=== PATIENT | female | born 1990 | race Two or more races ===

== ENCOUNTER 2018-08-22 05:51 | Inpatient (IN) | payer OTHER ==
[~2018-08-22] VITALS: Ht 162.6 cm; Wt 89.8 kg
[2018-08-22] VITALS (15 sets, daily range): BP systolic 103–137; BP diastolic 56–78
[2018-08-22] MEDS ORDERED: Propofol 1,000mg/ 100ml btl IV ONE (06:00)
[2018-08-22] MEDS ORDERED: Sodium Chloride 10ml vial INJ ONE (06:23)
[2018-08-22] MEDS ORDERED: Dexamethasone 4mg/ml vial ONE (06:23)
[2018-08-22] MEDS ORDERED: fentaNYL 100 mcg/2 mL IV ONE ×2 (06:23→09:24)
[2018-08-22] MEDS ORDERED: Lidocaine 1% MPF 10mg/ml 5ml ONE (06:23)
[2018-08-22] MEDS ORDERED: Rocuronium Bromide 50mg/5ml Inj IV ONE (06:27)
[2018-08-22] MEDS ORDERED: LR 1000ml 1,000 ML IVLG SCH (06:42)
[2018-08-22] MEDS ORDERED: oxyCODONE HCL/Acetaminophen 5/325mg ORAL PRN (06:45)
[2018-08-22] MEDS ORDERED: Atropine Sulfate 0.4mg/ml inj IVP PRN (06:45)
[2018-08-22] MEDS ORDERED: HYDROcodone/Acetamin 5/325 tab ORAL PRN (06:45)
[2018-08-22] MEDS ORDERED: Labetalol 5mg/ml 20ml vial IV PRN (06:45)
[2018-08-22] MEDS ORDERED: Hydromorphone 0.5mg/0.5ml inj IVP PRN (06:45)
[2018-08-22] MEDS ORDERED: fentaNYL 100 mcg/2 mL IV PRN (06:45)
[2018-08-22] MEDS ORDERED: Ketorolac 30mg Inj IV PRN ×2 (06:45)
[2018-08-22] MEDS ORDERED: Acetaminophen (Non formulary) 100 ML IV ONE (06:45)
[2018-08-22] MEDS ORDERED: LORazepam Inj 2mg/ml 1ml IV PRN (06:45)
[2018-08-22] MEDS ORDERED: HYDROcodone/Acetamin 7.5/325 tab ORAL PRN ×3 (06:45→09:45)
[2018-08-22] MEDS ORDERED: DiphenhydrAMINE 50mg/ml Inj IVP PRN ×2 (06:45→09:45)
[2018-08-22] MEDS ORDERED: Midazolam 2mg/2ml Inj IVP PRN (06:45)
[2018-08-22] MEDS ORDERED: Meperidine 50mg/ml Inj(FOR RIGORS ONLY) IVP PRN (06:45)
[2018-08-22] MEDS ORDERED: Metoclopramide 10mg/2ml Inj IVP PRN (06:45)
[2018-08-22] MEDS ORDERED: Gelfoam Size TOPIC ONE (06:49)
[2018-08-22] MEDS ORDERED: Thrombin 5000 units TOPIC ONE (06:49)
[2018-08-22] MEDS ORDERED: Bacitracin 50000 Units Vial ONE (06:49)
[2018-08-22] MEDS ORDERED: Bupivacaine w/Epi 0.5% 30ml Vial INJ ONE (06:49)
[2018-08-22] MEDS ORDERED: Ropivacaine 5mg/ml Vial 30ml INJ ONE (06:49)
--- NOTE | 2018-08-22 06:50 | Anethesia Preoperative Eval ---
Anesthesia Pre-op PMH/ROS General Date of Evaluation: August 22, 2018 Time of Evaluation: 07:11 Anesthesiologist: Jonny ASA Score: ASA 2 Mallampati Score Class I : Soft palate, uvula, fauces, pillars visible Class II: Soft palate, uvula, fauces visible Class III: Soft palate, base of uvula visible Class IV: Only hard plate visible Mallampati Classification: Class I Surgeon: Macarena Diagnosis: Back Pain Surgical Procedure: Anterior , Decompression and StabilizationL4-5, L5-S1 Anesthesia History: none Family History: no anesthesia problems Allergies: Coded Allergies: No Known Allergies (Unverified , 08/22/18) Medications: see eMAR Patient NPO?: Yes NPO Date: August 21, 2018 NPO Time: 2329 Past Medical History Other: obesity - BMI 35 Anesthesia Pre-op Phys. Exam Physician Exam Last Vital Signs Date Time Temp Pulse Resp B/P (MAP) Pulse Ox O2 Delivery O2 Flow Rate FiO2 08/22/18 06:41 98.5 79 18 137/76 (96) 97 Constitutional: NAD Neurologic: CN 2-12 intact Cardiovascular: RRR Respiratory: CTA Gastrointestinal: S/NT/ND Airway Exam Mallampati Score: Class I MO: full ROM: full Teeth: intact Anesthesia Pre-op A/P Labs Urine Test Test 08/22/18 06:00 Urine HCG, Qualitative Negative (NEGATIVE) Risk Assessment & Plan Assessment: ASA 2 Plan: GA, SED, GlideScope Go Status Change Before Surgery: No Pre-Antibiotics Dru Grams Ancef IV Given Within 1 Hr of Incision: Yes Time Given: 07:36 Jack Fuller MD August 22, 2018 06:50
[2018-08-22] MEDS ORDERED: NKM (06:51)
[2018-08-22] MEDS ORDERED: LR 1000ml ONE (07:00)
[2018-08-22] MEDS ORDERED: NS Irrig 1000ml ONE (07:00)
[2018-08-22] MEDS ORDERED: Sterile Water Irrig 1000ml IRRIG ONE (07:00)
[2018-08-22] MEDS ORDERED: Lidocaine 1% Plain 30 ml INJ ONE (07:02)
[2018-08-22] MEDS ORDERED: Heparin 5000 units/ml inj ONE (07:04)
--- NOTE | 2018-08-22 07:09 | Pre-Procedure Note/Attestation ---
Pre-Procedure Note/Attestation Complete Prior to Procedure Planned Procedure: not applicable Procedure Narrative: Instability with disc herniation L4-5 and L5/S1 Plan to do Anterior Lumbar Decompression and fixation at L4-5 and L5/S1 Indications for Procedure Pre-Operative Diagnosis: Instability with disc herniation L4-5 and L5/S1 Attestation I attest that I discussed the nature of the procedure; its benefits; risks and complications; and alternatives (and the risks and benefits of such alternatives ), prior to the procedure, with the patient (or the patient's legal mortician supplies sales representative). I attest that, if there was a reasonable possibility of needing a blood transfusion, the patient (or the patient's legal mortician supplies sales representative) was given the [place] Department [employer] Services standardized written summary, pursuant to the [place] Blood Safety Act ([place] Health and Safety Code # 1645, as amended). I attest that I re-evaluated the patient just prior to the surgery and that there has been no change in the patient's H&P, except as documented below: Daniel Martins August 22, 2018 07:09
[2018-08-22] MEDS ORDERED: Glycopyrrolate 0.2mg/ml 1ml Vial ONE ×3 (08:08→09:42)
[2018-08-22] MEDS ORDERED: Neostigmine 1mg/ml 10ml Inj ONE (09:16)
--- NOTE | 2018-08-22 09:34 | Operative Note - PDOC ---
Operative Note Operative Note Date of Operation/Procedure: August 22, 2018 Chief Complaint: Low Back Pain Pre-op Diagnosis: Instability with disc herniation L4-5 and L5/S1 Procedure: L4-5 and L5/S1 Anterior Decompression and fixation. Post-op Diagnosis: same as pre-op Operative Findings: consistent w/pre-op dx studies Surgeon: Macarena Filling Layer Up: MELISA Martins Additional Surgeons: Niño - Vascular Approach Anesthesia: general Specimen: yes Complications: none Condition: stable Estimated Blood Loss: minimal Drains: none Implant(s) used?: Yes - Volodymyr InFix devices and Volodymyr DBM Daniel Martins August 22, 2018 09:34
[2018-08-22] MEDS ORDERED: HYDROmorphone 1mg/ml Carpuject SUBQ PRN (09:45)
[2018-08-22] MEDS ORDERED: Acetaminophen 650 MG SUPP RECTAL PRN (09:45)
[2018-08-22] MEDS ORDERED: Naloxone 0.4mg/ml Inj IVP PRN ×2 (09:45)
[2018-08-22] MEDS ORDERED: LORazepam 1mg tab ORAL PRN (09:45)
[2018-08-22] MEDS ORDERED: PCA Education Pamphlet MISC ONE (10:00)
[2018-08-22] MEDS ORDERED: Rate Change PCA 1 Each MISC PRN (10:00)
--- NOTE | 2018-08-22 10:01 | Immediate Post-Op Evaluation ---
Immediate Post-Op Evalulation Immediate Post-Op Evalulation Procedure: Anterior , Decompression and StabilizationL4-5, L5-S1 Date of Evaluation: August 22, 2018 Time of Evaluation: 10:13 IV Fluids: 1000 LR Blood Products: 0 Estimated Blood Loss: 30 Urinary Output: 0 Blood Pressure Systolic: 128 Blood Pressure Diastolic: 76 Pulse Rate: 82 Respiratory Rate: 16 O2 Sat by Pulse Oximetry: 100 Temperature (Fahrenheit): 98.2 Pain Score (1-10): 2 Nausea: No Vomiting: No Complications 0 Patient Status: awake, reacts, patent, extubated, none Hydration Status: adequate Dru Grams Ancef IV Given Within 1 Hr of Incision: Yes Time Given: 07:36 Jcak Fuller MD August 22, 2018 10:01
[2018-08-22] MEDS: PCA Morphine 1mg/ml 30 ML IV PRN ×2 (10:07→19:05)
--- NOTE | 2018-08-22 11:00 | NUR ---
NURSE NOTES: REC'D FROM PACU SP ANTERIOR LUMBAR DECOMPRESSION/FIXATION L4-L5,L5-S1. AWAKE /ALERT. IV INFUSING. ABDOMINAL DRESSING DRY AND INTACT PAIN SCALE 8/10. ON LENDING MANAGER MS. INSTRUCTED TO PUSH BUTTON NEEDED FOR PAIN. NO NUMBENESS/TINGLING BLE EXTREMITIES. ICE PACK TO ABDOMEN. IN NO ACUTE DISTRESS.
--- NOTE | 2018-08-22 11:46 | Diagnostic Imaging Report ---
INDICATION: Pain, intraoperative TECHNIQUE: Intraoperative imaging Fluoroscopy time: 17.6 seconds Total dose: 0.45536 mGym2 Total number of images: 4 COMPARISON: None FINDINGS: Intraoperative imaging demonstrates surgical tool anterior to what is presumably the L5-S1 disc, subsequent placement of a disc spacer at this level. Subsequent image demonstrates surgical tool projected over the anterior aspect of the L4-5 disc, with subsequent placement of a disc spacer. IMPRESSION: Intraoperative imaging, as described
[2018-08-22] MEDS: ceFAZolin sod 1 GM in D5W 55 ML IV SCH (15:18)
--- NOTE | 2018-08-22 16:30 | Operative Note - Dictated ---
DATE OF OPERATION: 08/22/2018 SURGEON: Daniel Fiore M.D. CO-SURGEON: Santos Niño M.D. FERRIS WHEEL OPERATOR: KRISTINA Tucker. ANESTHESIOLOGIST: Jack Fuller M.D. ANESTHESIA: General endotracheal with arterial blood pressure monitoring. PREOPERATIVE DIAGNOSIS: Disk collapse instability at L4-L5 and L5-S1 with a large right-sided herniation at the L4-L5 level. POSTOPERATIVE DIAGNOSIS: Disk collapse instability at L4-L5 and L5-S1 with a large right-sided herniation at the L4-L5 level. OPERATIVE PROCEDURE: Anterior approach lumbar spine retroperitoneal by Dr. Niño with vessel mobilization and retraction using a table fixed frame followed by an anterior annulotomy, nuclear diskectomy, and partial vertebrectomy with bilateral foraminotomy and microneurolysis and stabilization and fusion accomplished using an InFix device at both L4-L5 and L5-S1 levels. Device size was small with 6 + 3 degrees of lordosis built in to the lumbosacral level and 3+ 3 degrees of lordosis used at the L4-L5 level on a small InFix cage. Image intensification was used as well as Cell Saver. The patient was prepped and draped in the supine position. Bolster was placed in lumbar spine to create normal lordosis. The patient had a Arellano catheter. The retroperitoneal space was identified by Dr. Niño as well as the anterior aspect of the spine at L4-L5 and L5-S1. Vessels were mobilized exposing the anterior anulus from the anteromedial and anterolateral corner and safely retracting both the vein and artery. Center of the disc was marked and checked with image. An anterior annulotomy was then done starting at L5-S1 with a 10 blade. The osteophytic margins of the vertebral body were trimmed and the cartilaginous endplate was then sequentially removed along with disks, soft tissue saving the lateral anulus. Distraction was used using detachable Darron tree distraction plugs that were lordotic to progress from front to back by using the distractors from the [id number] interchangeably starting with 8 and progressing to 10 millimeters of height. Soft central disk substance and the cartilaginous endplates were removed. The posterior disk was decompressed by removing the osteophytic ridge and the posterior disk and posterior longitudinal ligament. A bilateral foraminotomy was accomplished opening the foramen and distracting the level to 8 millimeters. An 8 millimeter trial was inserted and checked for position. 6 + 3 degrees of lordosis were added to the final construct, which was then tapped into place and checked in position. Then, the final construct was locked by cold welding and again checked. Bone protein was placed between the 2 endplates. The retractors were then repositioned to expose the anterior disk at L4-L5. The middle was marked. An anterior annulotomy was done. All soft tissue was removed as well as the anterior osteophytes. The disk was then dissected from front to back removing soft disk substance cartilaginous endplate, but preserving the outer anulus. Distraction was brought up to 10 millimeters. The posterior lip was identified. Posterior osteophytes were removed and the posterior disc was decompressed. The space was trialed with 8 millimeter small and 3 + 3 degrees of lordosis was added. The construct was inserted, tapped into place, cold welded, and then checked on x-ray both AP and lateral. The vessels were checked and the wound was then closed sequentially including the peritoneum, the rectus sheath, subcutaneous, and skin. Blood loss was less than 100 mL. Final x-rays were good. The patient's vital signs were stable. Returned to recovery room with a compression dressing in good condition. Daniel Fiore M.D. DR: YOLANDA JOB#: [id number] CC:
--- NOTE | 2018-08-22 17:54 | NUR ---
CASE MANAGEMENT:REVIEW 27 YR OLD FEMALE HERE FOR ELECTIVE SURGERY SI: LOW BACK PAIN INSTABILITY W/DISC HERNIATION 98.5 79 18 137/76 97% ON RA IS: TO SURGERY FOR: ANTERIOR DECOMPRESSION AND FIXATION : TO MED/SURG 3 EAST POST OP
--- NOTE | 2018-08-22 18:30 | Operative Note - Dictated ---
DATE OF OPERATION: 08/22/2018 VASCULAR SURGEON: Brandon Cornelius M.D. SPINE SURGEON: Daniel Fiore M.D. PREOPERATIVE DIAGNOSIS: Lumbar pain. POSTOPERATIVE DIAGNOSIS: Lumbar pain. PROCEDURE PERFORMED: 1. Anterior retroperitoneal exposure L4-L5 vertebral interspace, left retroperitoneal approach. 2. Anterior retroperitoneal exposure L5-S1 vertebral interspace, left retroperitoneal approach. INDICATIONS: The patient is a very pleasant woman who was seen prior to surgery and is scheduled for anterior spine surgery at L4-5 and L5-S1. She has no prior history of deep venous thrombosis or bleeding complications. Made aware of the need for a vertical midline incision, possibly vascular injury, deep venous thrombosis and bleeding complications was discussed with her. DESCRIPTION OF FINDINGS: A low vertical midline incision was used. A left retroperitoneal approach was used. There was no peritoneal or ureteral violation. There is no vascular injury. Exposure of L5-S1 obtained first below the iliac bifurcation and confirmation using fluoroscopy. Exposure of L4-L5 obtained above the iliac bifurcation with retraction the left iliac vessels towards the patient's right. On completion, the peritoneum and ureter intact. Iliac vessels intact. BLOOD LOSS: Less than 50 mL. COMPLICATIONS: None. DESCRIPTION OF PROCEDURE: The patient was taken to the operative room, general anesthesia was used. Antibiotics were given. The patient's abdomen was prepped and draped. Proper time-out procedures were taken. A low vertical midline incision made infraumbilically. The anterior fascia was incised longitudinally midline. A plane identified posterior to the left rectus abdominis developed posterolaterally towards the patient's left. The retroperitoneal space was bluntly entered below the arcuate line. The peritoneum and ureter mobilized towards the patient's right exposing the left common iliac artery and vein. Dissection was carried to undersurface of left common iliac vein. The middle sacral vessels were ligated using bipolar electrocautery. Soft tissues mobilized off the anterior surface of L5-S1 and the Omni retractor set in place. Fluoroscopy used to confirm the appropriate level. Instrumentation performed at L5-S1 dictated separately. Retractor then repositioned above the iliac bifurcation. Dissection carried to the left side, the left common iliac artery and vein. Overlying lymphatics were ligated with vascular clips. The iliolumbar vein was identified and doubly ligated proximally distally with vascular clips. The L4 segmental vessels were also identified, ligated with vascular clips and divided. This allowed us to retract the left iliac artery and vein towards the patient's right as well as the anterior surface of L4-L5. Once again, Omni retractor was set in place. Fluoroscopy was then used to confirm the appropriate level. Then instrumentation performed at L4-L5 as dictated separately. On completion, the retractor gently removed. Peritoneum and ureter were intact. Iliac vessels were intact. Anterior fascia was then closed with #1 PDS in a running fashion. The skin and subcutaneous tissue were closed with 3-0 Vicryl and 4-0 Monocryl running subcuticular closure technique. ESTIMATED BLOOD LOSS: Less than 100 mL. COMPLICATIONS: None. Brandon Cornelius M.D. DR: Morgan JOB#: [id number] CC: Daniel Fiore M.D.; Fax#: [phone] BRANDON CORNELIUS M.D. ; FAX#: [phone]
--- NOTE | 2018-08-22 19:00 | NUR ---
NURSE NOTES: RESTING IN BED. IN NO ACUTE DISTRESS.
[2018-08-22] MEDS: PCA shift volume MISC SCH (19:22)
--- NOTE | 2018-08-22 19:37 | NUR ---
HAND-OFF: Report given to Casandra SCRUGGS RN.
--- NOTE | 2018-08-22 19:38 | NUR ---
NURSE NOTES: Received report & pt from EDMUNDO Naqvi. Pt lying in bed, a&ox4, on O2 via NC @ 2LPM. No s/s of acute distress c/o 07/04 pain. Pain managed by FILLING TECHNICIAN at this time per pt. Surgical site C/D/I. IV site intact with IVF running as ordered. Informed to call RN once passing gas & pt verbalized understanding. FILLING TECHNICIAN setting checked. Bed in lowest position, call light & FILLING TECHNICIAN pump within reach. Will continue to monitor.
--- NOTE | 2018-08-22 19:40 | NUR ---
HAND-OFF: Report given to EDMUNDO Carroll. Rounds done. Pt in stable condition.
--- NOTE | 2018-08-22 20:00 | NUR ---
NURSE NOTES: Pt is in bed, awake and alert. No acute distress noted.Vitas stable; HR 50. Pt is on 2l N/c. Incentive spherometer by bedside. Arellano cath draining yellow urine. D5NS with 290mEq KCL running at 75ml/hr. Dressing dry and intact. Pt is currently NPO until pt passes gas. Pt reports no pain now, pt is on Morphine HOOK AND EYE MACHINE OPERATOR. Pt's mother is at the bedside. Bed locked low in position,side rails up and call light within reach. Pt is asked to call for assistance before getting out of bed. Pt will be monitored.
[2018-08-23] VITALS: BP 110/59
[2018-08-23] MEDS: ceFAZolin sod 1 GM in D5W 55 ML IV SCH ×4 (00:25→23:36)
--- NOTE | 2018-08-23 03:00 | NUR ---
NURSE NOTES: Pt is in bed, awake and calm. No acute distress noted. Pt reports no pain. RR 16. CODING SPEC Morphine pump is on. Arellano cath draining yellow urine. Pt was encouraged to use incentive spherometer. Pt has not passed gas yet, Bowel sounds present in all 4 quadrants. D5 NS with 20mEq kcl running at 75ml//hr. Dressing dry and intact.
[2018-08-23 04:00] VITALS: BP 102/55
[2018-08-23] MEDS: PCA shift volume MISC SCH ×2 (07:12→19:07)
--- NOTE | 2018-08-23 07:16 | NUR ---
HAND-OFF: Report given to EDMUNDO Naqvi.
--- NOTE | 2018-08-23 07:36 | NUR ---
NURSE NOTES: AWAKE/ALERTX4. ABDOMINAL DRESSING DRY AND INTACT PAIN SCALE 7/10. NO BOWEL SOUNDS AND NOT PASSING GAS YET. IN NO DISTRESS.
[2018-08-23 08:00] VITALS: BP 103/61
--- NOTE | 2018-08-23 08:29 | 48 Hour Post Anesthesia Eval ---
Post Anesthesia Evaluation Procedure: Anterior , Decompression and StabilizationL4-5, L5-S1 Date of Evaluation: August 23, 2018 Airway: patent Nausea: No Vomiting: No Pain Intensity: 2 Hydration Status: adequate Cardiopulmonary Status: at baseline Mental Status/LOC: patient returned to baseline Post-Anesthesia Complications: 0 Follow-up care needed: N/A - further care as per primary team Dinorah Quiroz MD August 23, 2018 08:29
--- NOTE | 2018-08-23 09:15 | NUR ---
PT EVALUATION NOTE Patient seen for initial evaluation, see complete evaluation for details. Patient presents with impaired mobility and pain s/p lumbar surgery. Patient will benefit from skilled inpatient PT intervention to address strength, mobility, and safety to improve level of function. Anticipate discharge home once medically cleared by MD. Recommend FWW and raised toilet seat for home use. Addendum: 08/23/18 at 1210 by JAMES LANCE PT Amended: Links added.
--- NOTE | 2018-08-23 09:20 | General Surgery Progress Note ---
General Surgery-Progress Note Subjective Procedure Performed L4-5 and L5/S1 Anterior Decompression and fixation. Symptoms: improved Objective Last 24 Hour Vital Signs Date Time Temp Pulse Resp B/P (MAP) Pulse Ox O2 Delivery O2 Flow Rate FiO2 08/23/18 08:00 97.7 47 18 103/61 (75) 08/23/18 04:00 97.4 50 16 102/55 (71) 99 08/23/18 04:00 16 08/23/18 00:00 16 08/23/18 00:00 97.8 51 16 110/59 (76) 96 08/22/18 21:00 Nasal Cannula 3.0 08/22/18 20:00 16 08/22/18 20:00 97.3 50 16 107/58 (74) 96 08/22/18 19:35 99.1 08/22/18 19:06 18 08/22/18 19:05 18 08/22/18 16:06 15 08/22/18 16:00 99.1 63 15 103/56 (72) 08/22/18 14:00 98.1 68 16 106/61 (76) 98 08/22/18 13:00 98.0 87 16 104/62 (76) 98 08/22/18 12:20 18 08/22/18 12:00 98.2 78 16 115/73 (87) 99 08/22/18 11:45 18 08/22/18 11:30 98.4 69 16 113/73 (86) 98 08/22/18 11:15 18 08/22/18 11:00 Nasal Cannula 3.0 08/22/18 11:00 98.0 67 16 116/71 (86) 100 08/22/18 11:00 98.0 08/22/18 10:55 97.8 68 21 111/78 100 Nasal Cannula 3 08/22/18 10:45 21 08/22/18 10:40 64 18 125/72 100 Nasal Cannula 3 08/22/18 10:30 19 08/22/18 10:30 64 19 118/74 100 Nasal Cannula 3 08/22/18 10:20 68 18 113/69 100 Nasal Cannula 3 08/22/18 10:15 20 08/22/18 10:10 77 21 125/73 100 Simple Mask 6 08/22/18 10:07 19 08/22/18 10:05 67 18 121/72 100 Simple Mask 6 08/22/18 10:02 98.2 86 16 128/76 100 Simple Mask 6 08/22/18 10:01 82 16 100 I&O Intake and Output 08/22/18 08/23/18 19:00 07:00 Intake Total 1417.5 ml 880 ml Output Total 1350 ml 400 ml Balance 67.5 ml 480 ml Intake IV Total 1417.5 ml 880 ml Output Urine Total 1350 ml 400 ml Estimated Blood Loss 0 ml Dressing: dry Wound: clean Drains: none Additional Comments Neuro exam intact reports numbness i left leg / foot. Assessment Additional Comments NPO Until passes gas PT to work with patient. Dr. Bach following. Daniel Martins August 23, 2018 09:20
--- NOTE | 2018-08-23 09:20 | NUR ---
NURSE NOTES: PT BP 103/61,P 47. PT SEEN PT BP RECHECKED 114/63,P 63. PT ASYMPTOMATIC. DR Kerri MCKINNEY NOTIFIED NO NEW ORDER WILL CONTINUE TO MONITOR PT.
[2018-08-23 12:00] VITALS: BP 110/56
[2018-08-23] MEDS: PCA Morphine 1mg/ml 30 ML IV PRN (12:20)
--- NOTE | 2018-08-23 13:09 | General Progress Note ---
Assessment/Plan Assessment/Plan: Instability with disc herniation L4-5 and L5/S1 L4-5 and L5/S1 Anterior Decompression and fixation. lumbar disc disease PLAN 1. incentive spirometry 2. SCD 3. PT evaluation and therapy 4. Hydration 5. Pain management 6. discharge once stable with outpatient follow up Subjective Allergies: Coded Allergies: No Known Allergies (Unverified , 08/22/18) Subjective asked to follow Objective Last 24 Hour Vital Signs Date Time Temp Pulse Resp B/P (MAP) Pulse Ox O2 Delivery O2 Flow Rate FiO2 08/23/18 12:52 97.7 08/23/18 12:25 18 08/23/18 12:24 18 08/23/18 12:00 97.6 48 18 110/56 (74) 100 08/23/18 09:00 Nasal Cannula 3.0 08/23/18 08:00 97.7 47 18 103/61 (75) 08/23/18 08:00 18 08/23/18 04:00 97.4 50 16 102/55 (71) 99 08/23/18 04:00 16 08/23/18 00:00 16 08/23/18 00:00 97.8 51 16 110/59 (76) 96 08/22/18 21:00 Nasal Cannula 3.0 08/22/18 20:00 16 08/22/18 20:00 97.3 50 16 107/58 (74) 96 08/22/18 19:06 18 08/22/18 19:05 18 08/22/18 16:06 15 08/22/18 16:00 99.1 63 15 103/56 (72) 08/22/18 14:00 98.1 68 16 106/61 (76) 98 Intake and Output 08/22/18 08/23/18 19:00 07:00 Intake Total 1417.5 ml 880 ml Output Total 1350 ml 400 ml Balance 67.5 ml 480 ml Intake IV Total 1417.5 ml 880 ml Output Urine Total 1350 ml 400 ml Estimated Blood Loss 0 ml Height (Feet): 5 Height (Inches): 4.00 Weight (Pounds): 198 Objective WDWN NAD clear breath sounds bilaterally without rhonchi or wheeze [id number] without MRG NABS nontender no HSM no CCE nonfocal Ryan Bach MD August 23, 2018 13:09
[2018-08-23 16:00] VITALS: BP 101/48
--- NOTE | 2018-08-23 18:26 | NUR ---
NURSE NOTES: TEMP 102. TYLENOL SUPP 650MG GIVEN PER RECTUM. COLD COMPRESS APPLIED TO FOREHEAD. ENCOURAED MORE TO DO DEEP BREATHING AND USE OF INCENTIVE SPIROMETER. DR Kerri MCKINNEY NOTIFIED. LEFT MESSAGE TO RETURN CALL.
--- NOTE | 2018-08-23 18:39 | NUR ---
NURSE NOTES: DR MCKINNEY CALLED BACK . NO NEW ORDER.
--- NOTE | 2018-08-23 19:00 | NUR ---
NURSE NOTES: temp rechecked 100.2
--- NOTE | 2018-08-23 19:10 | NUR ---
NURSE NOTES: ASSISTED TO THE BATHROOM. VOIDED.
--- NOTE | 2018-08-23 19:15 | NUR ---
HAND-OFF: Report given to Casandra SCRUGGS RN.
--- NOTE | 2018-08-23 19:16 | NUR ---
NURSE NOTES: Received report & pt from EDMUNDO Naqvi. Pt lying in bed, a&ox4, in room air, family member at bedside. No s/s of acute distress c/o 6/10 pain. Pain managed by SORTING MACHINE ATTENDANT at this time per pt. Surgical site C/D/I. IV site intact with IVF running as ordered. Informed pt to call RN once passing gas & pt verbalized understanding. SORTING MACHINE ATTENDANT setting checked. Bed in lowest position, call light & SORTING MACHINE ATTENDANT pump within reach. Will continue to monitor.
[2018-08-23 19:53] VITALS: BP 109/55
[2018-08-24] VITALS: BP 106/65
[2018-08-24 04:00] VITALS: BP 102/58
[2018-08-24] MEDS: ceFAZolin sod 1 GM in D5W 55 ML IV SCH ×2 (06:48→15:52)
[2018-08-24] MEDS: PCA shift volume MISC SCH ×2 (07:21→19:00)
--- NOTE | 2018-08-24 07:23 | NUR ---
HAND-OFF: Report given to EDMUNDO Rousseau. Pt in stable condition. Rounds done.
--- NOTE | 2018-08-24 07:29 | NUR ---
NURSE NOTES: Received report from EDMUNDO Modi. Rounding done with outgoing nurse. Patient a/o x4 doing I/S properly. c/o pain 6/10 of abdominal surgical site. Regular IV is running at 75ml/hr. Abdominal dressing is dry. Bed in lowest position, call light within reach. Will continue to monitor.
[2018-08-24 08:00] VITALS: BP 123/73
--- NOTE | 2018-08-24 08:38 | General Progress Note ---
Assessment/Plan Assessment/Plan: Instability with disc herniation L4-5 and L5/S1 L4-5 and L5/S1 Anterior Decompression and fixation. lumbar disc disease PLAN 1. incentive spirometry 2. SCD 3. PT evaluation and therapy 4. Hydration 5. Pain management 6. discharge planning Subjective Allergies: Coded Allergies: No Known Allergies (Unverified , 08/22/18) Subjective overnight events noted Objective Last 24 Hour Vital Signs Date Time Temp Pulse Resp B/P (MAP) Pulse Ox O2 Delivery O2 Flow Rate FiO2 08/24/18 04:00 18 08/24/18 04:00 97.9 83 18 102/58 (73) 97 08/24/18 00:00 98.9 77 18 106/65 (79) 97 08/24/18 00:00 18 08/23/18 21:00 Room Air 08/23/18 20:34 99.6 08/23/18 19:54 16 08/23/18 19:53 100.4 76 16 109/55 (73) 99 08/23/18 19:00 100.2 08/23/18 19:00 100.2 08/23/18 16:04 18 08/23/18 16:00 99.1 51 18 101/48 (65) 100 08/23/18 14:00 Room Air 08/23/18 12:52 97.7 08/23/18 12:25 18 08/23/18 12:24 18 08/23/18 12:00 97.6 48 18 110/56 (74) 100 08/23/18 09:00 Nasal Cannula 3.0 Intake and Output 08/23/18 08/24/18 19:00 07:00 Intake Total 822.5 ml 825 ml Output Total 200 ml Balance 622.5 ml 825 ml Intake IV Total 822.5 ml 825 ml Output Urine Total 200 ml # Voids 3 Height (Feet): 5 Height (Inches): 4.00 Weight (Pounds): 198 Objective WDWN NAD clear breath sounds bilaterally without rhonchi or wheeze [id number] without MRG NABS nontender no HSM no CCE nonfocal Ryan Bach MD August 24, 2018 08:38
--- NOTE | 2018-08-24 09:08 | NUR ---
NURSE NOTES: Dr. Bach ordered clear liquid diet. Noted and carried out.
--- NOTE | 2018-08-24 09:12 | General Surgery Progress Note ---
General Surgery-Progress Note Subjective Procedure Performed L4-5 and L5/S1 Anterior Decompression and fixation. Symptoms: improved Objective Last 24 Hour Vital Signs Date Time Temp Pulse Resp B/P (MAP) Pulse Ox O2 Delivery O2 Flow Rate FiO2 08/24/18 08:00 99.5 74 20 123/73 (90) 98 08/24/18 08:00 18 08/24/18 04:00 18 08/24/18 04:00 97.9 83 18 102/58 (73) 97 08/24/18 00:00 98.9 77 18 106/65 (79) 97 08/24/18 00:00 18 08/23/18 21:00 Room Air 08/23/18 20:34 99.6 08/23/18 19:54 16 08/23/18 19:53 100.4 76 16 109/55 (73) 99 08/23/18 19:00 100.2 08/23/18 19:00 100.2 08/23/18 16:04 18 08/23/18 16:00 99.1 51 18 101/48 (65) 100 08/23/18 14:00 Room Air 08/23/18 12:52 97.7 08/23/18 12:25 18 08/23/18 12:24 18 08/23/18 12:00 97.6 48 18 110/56 (74) 100 I&O Intake and Output 08/23/18 08/24/18 19:00 07:00 Intake Total 822.5 ml 825 ml Output Total 200 ml Balance 622.5 ml 825 ml Intake IV Total 822.5 ml 825 ml Output Urine Total 200 ml # Voids 3 Dressing: dry Wound: clean Abdomen: soft Additional Comments not passing gas, >> NPO Up with PT. Dr. Bach following. Daniel Martins August 24, 2018 09:12
--- NOTE | 2018-08-24 09:47 | NUR ---
NURSE NOTES: KRISTINA Mratins ordered renew GLAUCOMA SPECIALIST morphine. Noted and carried out.
--- NOTE | 2018-08-24 11:14 | NUR ---
CASE MANAGEMENT:REVIEW 08/24/18 SI: POD #2 S/P ANTERIOR DECOMPRESSION AND FIXATION 99.5 74 20 123/73 98% ON RA IS: IV ANCEF Q8HRS IVF@75/HR VOCATIONAL DIRECTOR : MED/SURG STATUS 3 [facility]
--- NOTE | 2018-08-24 11:45 | NUR ---
PT NOTE: Pt refused PT treatment session due to being tired. Requested to return in the afternoon. Will attempt PT session in the afternoon. Nurse call light left within easy reach. Notified nurse.
[2018-08-24 12:00] VITALS: BP 126/73
[2018-08-24] MEDS ORDERED: PCA Morphine 1mg/ml 30 ML IV PRN (12:30)
[2018-08-24] MEDS ORDERED: Rate Change PCA 1 Each MISC PRN (12:30)
[2018-08-24 15:55] VITALS: BP 127/77
--- NOTE | 2018-08-24 19:50 | NUR ---
NURSE NOTES: Received report from EDMUNDO Watt. Patient alert oriented, no distress noted. [employer] checked with day shift nurse. IV in left hand intact patent. Bed in low postiio
--- NOTE | 2018-08-24 19:50 | NUR ---
NURSE NOTES: Bed in low position, locked, side rails up x2, call light within reach. Family member at bedside, very supportive of care. Will continue to monitor.
--- NOTE | 2018-08-24 19:56 | NUR ---
HAND-OFF: Report given to EDMUNDO Serrato. Patient is stable.
[2018-08-24 20:00] VITALS: BP 99/68
[2018-08-25] VITALS: BP 106/69
[2018-08-25] MEDS: ceFAZolin sod 1 GM in D5W 55 ML IV SCH ×2 (00:03→07:49)
[2018-08-25 04:00] VITALS: BP 112/69
--- NOTE | 2018-08-25 06:26 | NUR ---
NURSE NOTES: Patient has ambulated with minimal assist to bathroom several times during night, tolerating well. Bowel sounds active, no flatus. Pain 4/10 after ambulating.
[2018-08-25 06:41] LABS: EOSINOPHILS % (AUTO) 1.9 % (0.0-3.0); HEMOGLOBIN 12.7 G/DL (12.0-16.0); LYMPHOCYTES % (AUTO) 16.8 % (20.0-45.0); MEAN CORPUSCULAR VOLUME 84 FL (80-99); MONOCYTES % (AUTO) 7.1 % (1.0-10.0); NEUTROPHILS % (AUTO) 73.2 % (45.0-75.0); PLATELET COUNT 192 K/UL (150-450); RED BLOOD COUNT 4.51 M/UL (4.20-5.40); RED CELL DISTRIBUTION WIDTH 13.4 % (11.6-14.8); WHITE BLOOD COUNT 8.1 K/UL (4.8-10.8)
[2018-08-25 07:02] LABS: ANION GAP 7 mmol/L (5-15); BLOOD UREA NITROGEN 5 mg/dL (7-18); CALCIUM 8.7 MG/DL (8.5-10.1); CARBON DIOXIDE 27 MMOL/L (21-32); CHLORIDE 104 MMOL/L (98-107); CREATININE 0.8 MG/DL (0.55-1.30); POTASSIUM 3.8 MMOL/L (3.5-5.1); SODIUM 138 MMOL/L (136-145)
[2018-08-25] MEDS: PCA shift volume MISC SCH (07:22)
--- NOTE | 2018-08-25 07:30 | NUR ---
HAND-OFF: Report given to EDMUNDO Naqvi .
--- NOTE | 2018-08-25 07:53 | NUR ---
NURSE NOTES: AWAKE/ALERT. PAIN SCALE 3/10. ABDOMINAL DRESSING DRY AND INTACT WITH TINY BLOOD STAIN. WITH BOWEL SOUNDS. IN NO DISTRESS.
[2018-08-25 08:00] VITALS: BP 137/83
--- NOTE | 2018-08-25 10:41 | General Progress Note ---
Assessment/Plan Assessment/Plan: Instability with disc herniation L4-5 and L5/S1 L4-5 and L5/S1 Anterior Decompression and fixation. lumbar disc disease PLAN 1. incentive spirometry 2. SCD 3. PT evaluation and therapy 4. Hydration and advance diet 5. Pain management 6. discharge planning Subjective Allergies: Coded Allergies: No Known Allergies (Unverified , 08/22/18) Subjective overnight events noted started clears less pain Objective Last 24 Hour Vital Signs Date Time Temp Pulse Resp B/P (MAP) Pulse Ox O2 Delivery O2 Flow Rate FiO2 08/25/18 08:24 Room Air 08/25/18 08:00 18 08/25/18 08:00 98.2 92 16 137/83 (101) 99 08/25/18 04:03 16 08/25/18 04:00 98.5 72 20 112/69 (83) 100 08/25/18 00:00 18 08/25/18 00:00 97.9 71 17 106/69 (81) 97 08/24/18 21:00 Room Air 08/24/18 20:00 98.7 77 18 99/68 (78) 99 08/24/18 20:00 19 08/24/18 16:00 18 08/24/18 15:55 98.4 79 19 127/77 (94) 99 08/24/18 12:00 99.8 81 18 126/73 (90) 94 08/24/18 12:00 18 Intake and Output 08/24/18 08/25/18 19:00 07:00 Intake Total 875 ml 1140 ml Balance 875 ml 1140 ml Intake Oral 50 ml 240 ml IV Total 825 ml 900 ml # Voids 4 5 Laboratory Tests 08/25/18 06:14: White Blood Count 8.1, Red Blood Count 4.51, Hemoglobin 12.7, Hematocrit 38.0, Mean Corpuscular Volume 84, Mean Corpuscular Hemoglobin 28.1, Mean Corpuscular Hemoglobin Concent 33.4, Red Cell Distribution Width 13.4, Platelet Count 192, Mean Platelet Volume 8.5, Neutrophils (%) (Auto) 73.2, Lymphocytes (%) (Auto) 16.8L, Monocytes (%) (Auto) 7.1, Eosinophils (%) (Auto) 1.9, Basophils (%) (Auto ) 1.0, Sodium Level 138, Potassium Level 3.8, Chloride Level 104, Carbon Dioxide Level 27, Anion Gap 7, Blood Urea Nitrogen 5L, Creatinine 0.8, Estimat Glomerular Filtration Rate > 60, Glucose Level 100, Calcium Level 8.7 Height (Feet): 5 Height (Inches): 4.00 Weight (Pounds): 198 Objective WDWN NAD clear breath sounds bilaterally without rhonchi or wheeze [id number] without MRG NABS nontender no HSM no CCE nonfocal Ryan Bach MD Aug 25, 2018 10:41
--- NOTE | 2018-08-25 11:20 | NUR ---
NURSE NOTES: up to the bathroom voided and has passed gas. dr vitale notified if ok to advance diet.left message to return call.
[2018-08-25 12:00] VITALS: BP 123/79
[2018-08-25 16:00] VITALS: BP_SYST 114
--- NOTE | 2018-08-25 16:48 | NUR ---
CASE MANAGEMENT:REVIEW 08/25/2018 SI: POD #3 S/P ANTERIOR DECOMPRESSION AND FIXATION T 98.5 HR 72 RR 20 B/P 112/69 SATS 100% ON RA IS: IV ANCEF Q8HRS IVF@75/HR PROGRAM COORDINATOR : MED/SURG STATUS 3 [facility]
[2018-08-25] MEDS: Docusate 100mg cap ORAL SCH (17:35)
--- NOTE | 2018-08-25 19:00 | NUR ---
NURSE NOTES: CONDITION STABLE. IN NO DISTRESS.
--- NOTE | 2018-08-25 19:30 | NUR ---
NURSE NOTES: Received report from EDMUNDO Naqvi. Received pt laying in bed, AOX4, pain level 2/10, refused pain medication at this time. Surgical dressing C/D/I. Temp 99.5. Encouraged pt to use incentive spirometry. Pt acknowledge understanding. Michael H #18 pt states it hurts when flushed. Informed pt that if the IV is hurting and tender, I will remove the IV and re-insert a new one, pt refused. Pt states she has bad veins and doesn't want to get poke again. Instructed pt to call if she wants IV removed and re-insert a new one. Pt verbalized understanding. No distress noted. Safety measures maintained. Mother at bedside. Will continue to monitor.
--- NOTE | 2018-08-25 19:36 | NUR ---
HAND-OFF: Report given to Aldo PAYNE RN.
[2018-08-25 20:00] VITALS: BP 114/80
--- NOTE | 2018-08-25 23:10 | NUR ---
NURSE NOTES: Rounds made, pain level 2.10, offered pain medication, pt refused. Instructed pt to call if need pain medication. Pt verbalized understanding of instruction. No distress noted. Will continue to monitor.
[2018-08-26] VITALS: BP 123/61
[2018-08-26 05:38] VITALS: BP 143/76
--- NOTE | 2018-08-26 07:34 | NUR ---
HAND-OFF: Report written and left for EDMUNDO Watt. Pt in stable condition.
[2018-08-26 08:00] VITALS: BP 115/73
--- NOTE | 2018-08-26 08:05 | NUR ---
NURSE NOTES: Received written report from EDMUNDO Dominguez. Patient a/o x 4 lying on the bed. Mother is at bed side. Denies any pain at this time. Abdominal surgical site is dry and intact. Gown and socks were changed. Bed in lowest position, call light within reach. Will continue to monitor.
--- NOTE | 2018-08-26 09:17 | General Progress Note ---
Assessment/Plan Assessment/Plan: Instability with disc herniation L4-5 and L5/S1 L4-5 and L5/S1 Anterior Decompression and fixation. lumbar disc disease PLAN 1. incentive spirometry 2. SCD 3. PT evaluation and therapy 4. Hydration and advance diet 5. Pain management 6. discharge home if ok with surgery Subjective Allergies: Coded Allergies: No Known Allergies (Unverified , 08/22/18) Subjective overnight events noted improved Objective Last 24 Hour Vital Signs Date Time Temp Pulse Resp B/P (MAP) Pulse Ox O2 Delivery O2 Flow Rate FiO2 08/26/18 05:38 98.6 69 18 143/76 (98) 98 08/26/18 00:00 99.0 66 18 123/61 (81) 98 08/25/18 21:00 Room Air 08/25/18 20:00 99.5 80 18 114/80 (91) 96 08/25/18 16:00 99.2 73 18 114/ 97 08/25/18 16:00 16 08/25/18 12:00 18 08/25/18 12:00 97.7 81 18 123/79 (94) 98 81 Intake and Output 08/25/18 08/26/18 18:59 06:59 Intake Total 1282.5 ml 120 ml Balance 1282.5 ml 120 ml Intake Oral 720 ml 120 ml IV Total 562.5 ml # Voids 2 2 Height (Feet): 5 Height (Inches): 4.00 Weight (Pounds): 198 Objective WDWN NAD clear breath sounds bilaterally without rhonchi or wheeze [id number] without MRG NABS nontender no HSM no CCE nonfocal Ryan Bach MD Aug 26, 2018 09:17
[2018-08-26] MEDS: Docusate 100mg cap ORAL SCH (09:27)
--- NOTE | 2018-08-26 09:40 | NUR ---
NURSE NOTES: Dr. Bach stat spoke to Dr. Fiore and pt can be released. Dr. Bach ordered discharge home. Noted and carried out.
[2018-08-26] MEDS ORDERED: NORCO 7.5-3251 EACH ORAL (10:24)
[2018-08-26] MEDS ORDERED: CYCLOBENZAPRINE10 MG ORAL (10:25)
--- NOTE | 2018-08-26 11:55 | NUR ---
NURSE NOTES: Discharge instruction was given. All belongings were checked with pt. Patient already received written prescription before surgery. IV line and arm band were removed. Patient was discharged with family member in stable condition.
--- NOTE | 2018-08-27 08:40 | Discharge Summary ---
Discharge Summary Hospital Course Date of Admission August 22, 2018 at 05:51 Date of Discharge Aug 26, 2018 at 11:53 Admitting Diagnosis Instability with disc herniation L4-5 and L5-S1 Reason for Hospitalization: elective surgery HPI Radha Alcantara is a 27 year old female who was admitted on August 22, 2018 at 05:51 for Instability with disc herniation L4-5 and L5- S1. Consultations Dr Bach -IM Procedures s/p 08/22/[address] Fiore L4-5 and L5/S1 Anterior Decompression and fixation s/p 08/22/[address] Niño ( vascular approach) 1. Anterior retroperitoneal exposure L4-L5 vertebral interspace, left retroperitoneal approach. 2. Anterior retroperitoneal exposure L5-S1 vertebral interspace, left retroperitoneal approach. Hospital Course status post surgery course of recovery uneventful initially IV fluids and NPO status ( until bowel function returned) s/p perioperative antibiotics neurovascular status closely monitored, stable incision clean , dry, and intact pain management addressed ; and pain controlled hemodynamically stable ambulated with PT DVT prophylaxis with SCD provided use of incentive spirometry was encouraged while in the bed fall precautions maintained; safe for ambulation when bowel function returned, patient started on liquid diet and was advanced as tolerate , IV fluids discontinued antiemetics were on board as needed voided freely bowel regimen instituted patient was stable for discharge discharge instructions provided follow up with surgeon in clinic as outpatient as advised by surgeon FINAL DIAGNOSES Instability with disc herniation L4-5 and L5/S1 s/p L4-5 and L5/S1 Anterior Decompression and fixation. Anterior , Discharge Medications Continued Medications: Cyclobenzaprine Hcl* (Flexeril*) 10 Mg Tablet 10 MG ORAL BEDTIME, TAB (This prescription has been renewed) Hydrocodone Bit/Acetaminophen 7.5-325* (Bernice 7.5-325*) 1 Each Tablet 1 TAB ORAL Q4HR TO Q6HR PRN for For Pain, #60 TAB 0 Refills (This prescription has been renewed) Discharge Condition Upon Discharge: stable Discharge Disposition Patient was discharged home Discharge Instructions Discharge Instructions Special Instructions I have been assigned to complete a D/C Summary on this account. I was not involved in the patient management Mariya Keene NP Aug 27, 2018 08:40
--- NOTE | 2018-12-06 09:44 | Diagnostic Imaging Report ---
INDICATION: Pain, intraoperative TECHNIQUE: Intraoperative imaging Fluoroscopy time: 17.6 seconds Total dose: 0.11616 mGym2 Total number of images: 4 COMPARISON: None FINDINGS: Intraoperative imaging demonstrates surgical tool anterior to what is presumably the L5-S1 disc, subsequent placement of a disc spacer at this level. Subsequent image demonstrates surgical tool projected over the anterior aspect of the L4-5 disc, with subsequent placement of a disc spacer. IMPRESSION: Intraoperative imaging, as described
== END 2018-08-26 11:53 | disposition home or self-care (01) | DRG 460 ==
LOC: SDSOVERFLO 05:51 → 3E 11:37
PROC: 0SG00A0 Fusion of Lumbar Vertebral Joint with Interbody Fusion Device, Anterior Approach, Anterior Column, Open Approach (ICD-10-PCS; principal; 2018-08-22 07:00)
PROC: 0ST20ZZ Resection of Lumbar Vertebral Disc, Open Approach (ICD-10-PCS; principal; 2018-08-22 07:00)
PROC: 0ST40ZZ Resection of Lumbosacral Disc, Open Approach (ICD-10-PCS; principal; 2018-08-22 07:00)
PROC: 0SG30A0 Fusion of Lumbosacral Joint with Interbody Fusion Device, Anterior Approach, Anterior Column, Open Approach (ICD-10-PCS; principal; 2018-08-22 07:00)
DX: M51.26 Other intervertebral disc displacement, lumbar region (principal); M51.27 Other intervertebral disc displacement, lumbosacral region; M53.2X6 Spinal instabilities, lumbar region
CPT/HCPCS: 36415; 72020; 76000; 80048; 81025; 85025; 86850; 86900; 86901; 87081; 94003; 94150; J2405; J2710